=== PATIENT | female | born 1995 | race Caucasian/White ===

== ENCOUNTER 2017-01-13 19:25 | Emergency (ER) | payer SELFPAY ==
--- NOTE | 2017-01-13 21:51 | UC ---
Complaint Female HPI - HPI Summary HPI Summary: Patient presents with suprapubic pain x 1 week. She notes to leaving a tampon in place for 2 days while on her period 2 weeks ago. She is concerned with TSS. She states she just felt "off" since that time. Denies fever. Denies aches, sweats or chills. Denies urinary symptoms. Denies GARSIA. Denies chest pain or pressure. She is tearful on examination d/t unknown reason why she is "feeling off." - History Of Current Complaint Chief Complaint: UCAbdominalPain Stated Complaint: UTERINE/STOMACH PAIN Time Seen by Provider: 01/13/17 19:41 Hx Obtained From: Patient Hx Last Menstrual Period: 01/03/17 ?: No Onset/Duration: Gradual Onset Timing: Constant Severity Initially: Moderate Severity Currently: Moderate Pain Intensity: 3 Pain Scale Used: 0-10 Numeric Character: Cramping Aggravating Factor(s): Movement Associated Signs And Symptoms: Positive: Negative - Risk Factors Ectopic Risk Factor: Negative Ovarian Torsion Risk Factor: Reproductive Age - Allergies/Home Medications Allergies/Adverse Reactions: Allergies Allergy/AdvReac Type Severity Reaction Status Date / Time No Known Allergies Allergy Verified 06/05/12 13:30 PMH/Surg Hx/FS Hx/Imm Hx Previously Healthy: Yes - Surgical History Surgical History: None - Social History Alcohol Use: None Substance Use Type: None Smoking Status (MU): Never Smoked Tobacco Review of Systems Constitutional: Negative Skin: Negative Respiratory: Negative Cardiovascular: Negative Gastrointestinal: Abdominal Pain Genitourinary: Negative Motor: Negative Neurovascular: Negative Musculoskeletal: Negative Neurological: Negative All Other Systems Reviewed And Are Negative: Yes Physical Exam Triage Information Reviewed: Yes Appearance: Well-Appearing, No Pain Distress, Well-Nourished Vital Signs: Initial Vital Signs Temp 98.6 F 01/13/17 19:31 Pulse 59 01/13/17 19:31 Resp 18 01/13/17 19:31 BP 105/69 01/13/17 19:31 Pulse Ox 100 01/13/17 19:31 Vital Signs Reviewed: Yes Eye Exam: Normal Eyes: Positive: Conjunctiva Clear Neck exam: Normal Neck: Positive: Supple, Nontender, No Lymphadenopathy Respiratory Exam: Normal Respiratory: Positive: Chest non-tender, Lungs clear, Normal breath sounds Cardiovascular Exam: Normal Cardiovascular: Positive: RRR Musculoskeletal Exam: Normal Musculoskeletal: Positive: Strength Intact Neurological Exam: Normal Neurological: Positive: Alert Psychological: Positive: Normal Response To Family, Age Appropriate Behavior Skin Exam: Normal Complaint Female Dx - Course Course Of Treatment: UA WNL. Discussed treatment options with patient. Patient prefers to follow up with OBGYN. Educated patient regarding TSS. She states she feels better knowing she does not have TSS based on her symptoms. Cannot r/o ovarian pathology or uterine pain without US and other imaging. Patient agrees but would like to follow up as outpatient. Patient made aware of plan and is OK with discharge. Patient will follow up with PCP and return if symptoms become worse. Return precautions given, medications and side effects reviewed. - Differential Dx/Diagnosis Differential Diagnosis/HQI/PQRI: Appendicitis, Ovarian Cyst, Urinary Tract Infection Provider Diagnoses: Abdominal Pain Discharge - Discharge Plan Condition: Stable Disposition: HOME Patient Education Materials: Acute Abdominal Pain (ED) Referrals: CHIOMA Stewart [Primary Care Provider] - Additional Instructions: Follow up with OBGYN If symptoms become worse, come back to UC or go to the ED [place] for discomfort Moist heat pad to the area
== END 2017-01-13 20:26 | disposition home or self-care (01) ==
LOC: UCEAST 19:25
DX: R10.30 Lower abdominal pain, unspecified (principal)
CPT/HCPCS: 81003; 99201; G0463

== ENCOUNTER 2017-12-23 23:33 | Emergency (ER) | payer OTHER ==
[2017-12-23] MEDS ORDERED: NS 0.9% 1000 ML* 1,000 ML IV ONE (23:34)
[2017-12-23] MEDS ORDERED: LORazepam INJ* 2 MG/ML 1 ML VIAL IV PUSH ONE (23:53)
[2017-12-24 00:12] LABS: ABS Basophils 0 10^3/ul (0-0.2); ABS Eosinophils 0 10^3/ul (0-0.6); ABS Lymphocytes 1.3 10^3/ul (1.0-4.8); ABS Monocytes 0.4 10^3/ul (0-0.8); ABS Neutrophils 6.9 10^3/ul (1.5-7.7); ABS Nucleated RBC 0 10^3/ul; Eosinophil % 0.2 % (0-6); Hematocrit 42 % (35-47); Hemoglobin 14.5 g/dl (12.0-16.0); Lymphocyte % 14.5 % (25-47); Mean Corpuscular HGB Conc 34 g/dl (31-36); Mean Corpuscular Hemoglobin 31 pg (27-31); Mean Corpuscular Volume 89 fL (80-97); Mean Platelet Volume 7.3 um3 (7.4-10.4); Nucleated Red Blood Cells % 0; Platelet Count 334 10^3/ul (150-450); Red Blood Count 4.74 10^6/ul (4.0-5.4); Red Cell Distribution Width 12 % (10.5-15); White Blood Count 8.7 10^3/ul (3.5-10.8)
[2017-12-24 00:26] LABS: EGFR Non-African American 78.8 (>60)
[2017-12-24 00:32] LABS: Urine Appearance Clear; Urine Blood Negative (Negative); Urine Color Straw; Urine Ketones Negative (Negative); Urine Protein Negative (Negative); Urine Specific Gravity 1.003 (1.010-1.030); Urine Urobilinogen Negative (Negative)
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
[2017-12-24 04:27] VITALS: BP 0/0
== END 2017-12-24 04:15 | disposition home or self-care (01) ==
LOC: ED 23:33
DX: F43.22 Adjustment disorder with anxiety (principal)
CPT/HCPCS: 36415; 80048; 80307; 80320; 81003; 84443; 84702; 85025; 93005; 96361; 96374; 99284; G0480; J2060

== ENCOUNTER 2018-10-26 20:56 | Emergency (ER) | payer OTHER ==
--- NOTE | 2018-10-26 23:01 | ED ---
Psychiatric Complaint - HPI Summary HPI Summary: Patient is a 23 y/o female who presents to the ED c/o hallucinations. December 2017 she was admitted to [facility] for psychotic disorder, and schizophrenia has not yet been ruled out. Patient was placed on Abilify and Trazodone, and was doing outpatient counseling for two months. During this period she felt better. Patient is an alcoholic and relapsed between March 2018 and August 2018, and stopped taking her medications. She has been two months sober. Patient was told that drinking alcohol makes her psychotic behavior worse. She found out she was in August, and was diagnosed with a miscarriage 6 days ago. She was 9.5 weeks . Patient has been bleeding for the past two days and also c/o cramps. This recent news has caused her to become manic again. Last night she was having visual and auditory hallucinations, and was suicidal. Patient states the voices in her head were telling her to take all her sleeping pills. She denies any current SI and feels lucid. Patient came to the ED because she didnt feel safe alone, however she now feels safe and is denying a full MHE. She has a plan to go home with her mother and has a counseling appointment in 2 days. Patient is still going to and has a sponsor. She is starting a job in a few weeks. PMHx anxiety, concussion, alcoholism, self-harm. Patient denies any current alcohol or drug use. - History Of Current Complaint Chief Complaint: EDMentalHealth Time Seen by Provider: 10/26/18 22:56 Hx Obtained From: Patient, Family/Zoogler - Parents Hx Last Menstrual Period: 01/03/17 Onset/Duration: Gradual Onset, Worse Since Timing: Constant Character: Depressed Aggravating Factor(s): Recent Stress - miscarraige Alleviating Factor(s): Nothing Related History: Positive For: Prior Psychiatric Issues Has Suicidal: Reports: Thoughts - Allergies/Home Medications Allergies/Adverse Reactions: Allergies Allergy/AdvReac Type Severity Reaction Status Date / Time No Known Allergies Allergy Verified 06/05/12 13:30 Home Medications: Home Medications ARIPiprazole [Abilify] 10 mg PO DAILY 10/26/18 [History Confirmed 10/26/18] hydrOXYzine HCL TAB* [Atarax 25 MG TAB*] 25 mg PO BEDTIME PRN 10/26/18 [History Confirmed 10/26/18] PMH/Surg Hx/FS Hx/Imm Hx Endocrine/Hematology History: Denies: Hx Diabetes Cardiovascular History: Denies: Hx Hypertension Neurological History: Reports: Other Neuro Impairments/Disorders - concussion Psychiatric History: Reports: Hx Anxiety, Hx Substance Abuse - EtOH, Other Psychiatric Issues/Disorders - Psychotic disorder, self-harm Infectious Disease History: No Infectious Disease History: Denies: Traveled Outside the [place] in Last 30 Days - Family History Known Family History: Positive: Other - Father - alcoholism - Social History Alcohol Use: Daily Alcohol Amount: alcoholic - in remission Hx Substance Use: Yes Substance Use Type: Reports: Marijuana Hx Tobacco Use: No Smoking Status (MU): Never Smoked Tobacco Review of Systems Positive: other - vaginal bleeding Positive: Other - cramping Positive: Depressed, Other - auditory/visual hallucinations, SI All Other Systems Reviewed And Are Negative: Yes Physical Exam - Summary Physical Exam Summary: Appearance: well appearing, no pain distress Skin: warm, dry, reflects adequate perfusion Head/face: normal Eyes: EOMI, PUMA ENT: mucous membranes moist Neck: supple, non-tender Respiratory: CTA, breath sounds present Cardiovascular: RRR, pulses symmetrical Abdomen: non-tender, soft Bowel Sounds: present Musculoskeletal: normal, strength/ROM intact Neuro: normal, sensory motor intact, A&Ox3 Triage Information Reviewed: Yes Vital Signs On Initial Exam: Initial Vitals Temp Pulse Resp BP Pulse Ox 99.1 F 90 16 140/71 99 10/26/18 21:05 10/26/18 21:05 10/26/18 21:05 10/26/18 21:05 10/26/18 21:05 Vital Signs Reviewed: Yes Diagnostics - Vital Signs Vital Signs Temp Pulse Resp BP Pulse Ox 10/26/18 21:05 99.1 F 90 16 140/71 99 - Laboratory Lab Statement: Any lab studies that have been ordered have been reviewed, and results considered in the medical decision making process. Course/Dx - Course Course Of Treatment: Nurse's notes reviewed. Patient presents with a history of mental health and with not feeling safe tonight. She is feeling better at this point. She has a plan to follow-up with outpatient counselors in [place] tomorrow that she has long-standing relationship with. She is staying with her mother and has a safety plan. Patient and family refused formal mental health evaluation today. - Differential Dx/Clinical Impression Differential Diagnosis/HQI/PQRI: Positive: Acute Psychosis, Anxiety, Bipolar Disorder, Depression, Suicidal Ideation Provider Diagnosis: Psychotic disorder Discharge - Sign-Out/Discharge Documenting (check all that apply): Patient Departure - Discharge Patient Received Moderate/Deep Sedation with Procedure: No - Discharge Plan Condition: Improved Disposition: HOME Patient Education Materials: Psychotic Disorder (ED) Referrals: Josiah Stanford [Primary Care Provider] - Additional Instructions: Follow up with your counselor and psychiatrist in [place] as scheduled. Return with suicidal thoughts, not feeling safe, worse, new symptoms or other concerns. As for your miscarriage return with heavy bleeding, uncontrolled pain , worse or other concerns. - Billing Disposition and Condition Condition: IMPROVED Disposition: Home - Attestation Statements Document Initiated by Rojelio: Yes Documenting Scribe: Mary Mirza Provider For Whom Nestoribe is Documenting (Include Credential): Damian Maher MD Scribe Attestation: IMary, scribed for Damian Maher MD on 10/27/18 at 0304. Scribe Documentation Reviewed: Yes Provider Attestation: The documentation as recorded by the Mary eric accurately reflects the service I personally performed and the decisions made by me, Damian Maher MD Status of Scribe Document: Viewed
[2018-10-26 23:24] VITALS: BP 134/66
== END 2018-10-26 23:26 | disposition home or self-care (01) ==
LOC: ED 20:56
DX: F29 Unspecified psychosis not due to a substance or known physiological condition (principal); F41.9 Anxiety disorder, unspecified
CPT/HCPCS: 99283

== ENCOUNTER 2018-10-29 09:00 | Emergency (ER) | payer OTHER ==
[2018-10-29] MEDS ORDERED: NS 0.9% 1000 ML** 1,000 ML IV ONE (09:11)
[2018-10-29] MEDS ORDERED: Ondansetron INJ* 2 MG/ML VIAL IV ONE (09:11)
--- OUTSIDE RECORDS SUMMARY | 2018-10-29 09:14 | XMS REPORT | Continuity of Care Document ---
:1995 External Reference #:[id number] Author Name Sara Tillman Care Team Providers Name Role Phone Josiah Mota PA Primary Care Physician Unavailable Payers Date Identification Numbers Payment Provider Subscriber Policy Number: [id number] [facility] Derek Cardoso PayID: [id number] [address] [place] [address] Policy Number: [id number] Medicaid TIGIST Cardoso PayID: [id number] [address] [place] [address] Advance Directives Description No Information Available Problems Description No Information Family History Date Family Member(s) Observation Comments Father A&W Mother Anxiety First Brother A&W First Sister A&W Second Sister A&W Paternal Grandfather A&W Paternal Grandmother A&W Maternal Grandfather due to Unknown Causes () Maternal Grandmother due to Unknown Causes () Social History Type Date Description Comments Sex Unknown Education Highest Level Completed Is High School Diploma Marital Status Single Lives With Mother Lives With Sister Diet Healthy, Well Balanced Pets None Work Status Unemployed Cigarette Use Former Cigarette Smoker Quit with , was 1/2 PPD for 1.5 years prior to quitting ETOH Use Does Not Drink Alcohol In recovery Recreational Drug Use Denies Drug Use Tobacco Use Start: Unknown End: Patient is a former Unknown smoker Smoking Status Reviewed: 10/27/18 Patient is a former smoker Seat Belt/Car Seat Always uses seat belt Currently Active Patient is currently sexually active STD's No STD History Allergies, Adverse Reactions, Alerts Description No Known Drug Allergies Medications Medication Date Status Form Strength Qnty SIG Indications Ordering Provider [facility] Active Tablets 28-0.8mg Unknown Immunizations Description No Information Available Vital Signs Date Vital Result Comment 10/27/2018 1:01pm BP Systolic 122 mmHg BP Diastolic 70 mmHg Height 63 inches 5'3" Weight 160.00 lb BMI (Body Mass Index) 28.3 kg/m2 Last Menstrual Period 4484053 1 Parity 0 09/20/2018 2:32pm BP Systolic 114 mmHg BP Diastolic 66 mmHg Height 63 inches 5'3" Weight 164.00 lb BMI (Body Mass Index) 29.0 kg/m2 Last Menstrual Period 9176308 1 Parity 0 Results Test Date Facility Test Result H/L Range Note Laboratory test 10/20/2018 [facility] HCG 7637.00 mIU/ mL [address] [place] [address] [phone] Type And Screen 10/20/2018 [facility] [place] [address] Type [phone] Antibody Screen NEGATIVE GC/Chlamydia Dna 09/20/2018 [facility] Chlamydia [place] [address] trachomatis Rna [phone] Neisseria gonorrhoeae (GC) Rna Negative Negative Urine Culture And 09/10/2018 [facility] Urine Culture SEE RESULT 2 [place] [address] BELOW [phone] 1 <5.0 Negative 5.0 - 25.0 Indeterminate (Repeat testing recommended after 72 hours) >25.0 Positive Perimenopausal women can display HCG levels of up to 20 mIU/mL 2 SEE RESULT BELOW Name: DEREK LEE : [address]: Maia Mckenzie CNM Acct: [id number] Unit: [id number] AGE: 23 Location: [facility] Re09/10/18 SEX: F Status: REG REF SPEC: [id number] FROYLAN: 09/10/18-[address]: Maia Mckenzie CNM REQ: [id number] RECD: 09/10/18 STATUS: COMP _ SOURCE: URINE [facility]: ORDERED: Urine Culture COMMENTS: [id number] Urine Source: Random Procedure Result Reported Site Urine Culture Final 09/11/18- 1318 ML No Growth (<1,000 CFU/mL) * ML - Main Lab . END OF REPORT DEPARTMENT OF PATHOLOGY, [address] [place] [address] Josiah Franklin M.D. Director [facility] # [id number] Procedures Date Code Description Status 10/20/2018 09313 OB Ultrasound First Trimester Completed 09/20/2018 04373 OB Ultrasound First Trimester Completed 09/10/2018 79307 OB Ultrasound First Trimester Completed Encounters Description No Information Available Plan of Treatment No Information Available
--- OUTSIDE RECORDS SUMMARY | 2018-10-29 09:14 | XMS REPORT | Continuity of Care Document ---
:1995 External Reference #:[id number] Author Name Herminia Arce MD Address [address] [place] [address] Care Team Providers Name Role Phone Josiah Mota PA Primary Care Physician Unavailable Payers Date Identification Numbers Payment Provider Subscriber Policy Number: [id number] [facility] Derek Cardoso PayID: [id number] [address] [place] [address] Policy Number: [id number] Medicaid TIGIST Cardoso PayID: [id number] [address] [place] [address] Advance Directives Description No Information Available Problems [...] Ordering Provider [facility] Active Tablets 28-0.8mg Unknown Medications Administered in Office Medication Date Status Form Strength Qnty SIG Indications Ordering Provider PT SCRN Tbco Administered Injection Yazmin, Id as Non User 019 MD Herminia Immunizations Description No Information Available Vital Signs Date Vital Result Comment 10/27/2018 1:01pm BP Systolic 122 mmHg BP Diastolic 70 mmHg Height 63 inches 5'3" Weight 160.00 lb BMI (Body Mass Index) 28.3 kg/m2 Last Menstrual Period [id number] 1 Parity 0 09/20/2018 2:32pm BP Systolic 114 mmHg BP Diastolic 66 mmHg Height 63 inches 5'3" Weight 164.00 lb BMI (Body Mass Index) 29.0 kg/m2 Last Menstrual Period 8651944 1 Parity 0 Results Test Date Facility Test Result H/L Range Note Laboratory test 10/20/2018 [facility] HCG 7637.00 mIU/ mL 1 [place] [address] [phone] Type And Screen 10/20/2018 [facility] [place] [address] Type [phone] Antibody Screen NEGATIVE GC/Chlamydia Dna 09/20/2018 [facility] Chlamydia [place] [address] trachomatis Rna [phone] Neisseria gonorrhoeae (GC) Rna Negative Negative Urine Culture And 09/10/2018 [facility] Urine Culture SEE RESULT 2 [place] [address] BELOW [phone] 1 <5.0 Negative 5.0 - 25.0 Indeterminate (Repeat testing recommended after 72 hours) >25.0 Positive Perimenopausal women can display HCG levels of up to 20 mIU/mL 2 SEE RESULT BELOW Name: DEREK LEE : [address]: Maia Mckenzie CNM Acct: [id number] Unit: [id number] AGE: 23 Location: [facility] Re09/10/18 SEX: F Status: REG REF SPEC: [id number] FROYLAN: 09/10/18-[address]: Maia Mckenzie, [facility] REQ: [id number] RECD: 09/10/18 STATUS: COMP _ SOURCE: URINE SPDESC: ORDERED: Urine Culture COMMENTS: [id number] Urine Source: Random Procedure Result Reported Site Urine Culture Final 09/11/18- 1318 ML No Growth (<1,000 CFU/mL) * ML - Main Lab . END OF REPORT DEPARTMENT OF PATHOLOGY, [address] [place] [address] Josiah Franklin M.D. 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 O R010/27/2018 - Herminia Arce MDO02.1 Missed abortionComments:Reviewed options. She prefers to schedule a D&C (dilation and curettage) now. This is a procedure where we surgically remove the contents of the uterus. You typically are in the hospital for lessthan 1 day for the procedure. You may have residual cramping or spotting for a few days. Risks of the surgery include bleeding, infection, and very rarely, perforation of the uterus or formation of scar tissue in the uterus.Possible IUD insertion after pt d/w Dr. Monique.F28 Other psychotic disorder not due to a substance or known physiological conditionComments: Assured that pt is safe, is not currently suicidal and has good family support with a plan for if her mood changes. Consider IUD insertion at time of D&C for trainman contraception in case her mood worsens and f/u is an issue. Reviewed risks associated with IUDs including perforation, , abnormal bleeding, pain with insertion and expulsion.
--- OUTSIDE RECORDS SUMMARY | 2018-10-29 09:14 | XMS REPORT | Continuity of Care Document ---
:1995 External Reference #:[id number] Author Name Sara Tillman Care Team Providers Name Role Phone Josiah Mota PA Primary Care Physician Unavailable Payers Date Identification Numbers Payment Provider Subscriber Policy Number: [id number] [facility] Derek Cardoso PayID: [id number] [address] [place] [address] Policy Number: [id number] Medicaid TIGIST Cardoso PayID: [id number] [address] [place] [address] Advance Directives Description No Information Available Problems [...] Mass Index) 28.3 kg/m2 Last Menstrual Period [id number] 1 Parity 0 09/20/2018 2:32pm BP Systolic 114 mmHg BP Diastolic 66 mmHg Height 63 inches 5'3" Weight 164.00 lb BMI (Body Mass Index) 29.0 kg/m2 Last Menstrual Period 8313351 1 Parity 0 Results Test Date Facility Test Result H/L Range Note Laboratory test 10/20/2018 [facility] HCG 7637.00 mIU/ mL 1 [place] [address] [phone] Type And Screen 10/20/2018 [facility] Patient [place] [address] Type [phone] Antibody Screen NEGATIVE GC/Chlamydia Dna 09/20/2018 [facility] Chlamydia Negative [place] [address] trachomatis Rna [phone] Neisseria gonorrhoeae (GC) Rna Negative Negative Urine Culture And 09/10/2018 [facility] Urine Culture SEE RESULT 2 [place] [address] BELOW [phone] 1 <5.0 Negative 5.0 - 25.0 Indeterminate (Repeat testing recommended after 72 hours) >25.0 Positive Perimenopausal women can display HCG levels of up to 20 mIU/mL 2 SEE RESULT BELOW Name: DEREK LEE : [address]: Maia Mckenzie CNM Acct: [id number] Unit: [id number] AGE: 23 Location: [facility] Re09/10/18 SEX: F Status: REG REF SPEC: [id number] FROYLAN: 09/10/18-[address]: Maia Mckenzie CNM REQ: [id number] RECD: 09/10/18 STATUS: COMP _ SOURCE: URINE [facility]: ORDERED: Urine Culture COMMENTS: [id number] Urine Source: Random Procedure Result Reported Site Urine Culture Final 09/11/18- 1318 ML No Growth (<1,000 CFU/mL) * ML - Main Lab . END OF REPORT DEPARTMENT OF PATHOLOGY, [address] [place] [address] Josiah Franklin M.D. Director [facility] # [id number] Procedures Date Code Description Status 10/20/2018 74868 OB Ultrasound First Trimester Completed 09/20/2018 22171 OB Ultrasound First Trimester Completed 09/10/2018 97097 OB Ultrasound First Trimester Completed Encounters Description No Information Available Plan of Treatment No Information Available
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
[2018-10-29] MEDS ORDERED: Midazolam* 1 MG/ML 5 ML VIAL (5 MG) ONE (09:47)
[2018-10-29] MEDS ORDERED: fentaNYL* 50 MCG/ML 2 ML VIAL (100 MCG VIAL) ONE (09:47)
[2018-10-29] MEDS ORDERED: Propofol* 10 MG/ML 20 ML BTL ONE (10:12)
[2018-10-29] MEDS ORDERED: Ondansetron INJ* 2 MG/ML VIAL ONE (10:12)
[2018-10-29] MEDS ORDERED: Lidocaine 2% PF * 5 ML VIAL ONE (10:12)
[2018-10-29] MEDS ORDERED: Dexamethasone IV* 4 MG/ML 1 ML (4 MG) IV SLOW PU ONE (10:29)
[2018-10-29] MEDS ORDERED: Acetaminophen TAB* 325 MG PO PRN (10:29)
[2018-10-29] MEDS ORDERED: Naloxone* 0.4 MG/ML 1 ML VIAL IV PRN (10:29)
[2018-10-29] MEDS ORDERED: fentaNYL* 50 MCG/ML 2 ML VIAL (100 MCG VIAL) IV PRN (10:29)
[2018-10-29] MEDS ORDERED: Ibuprofen TAB* 600 MG PO PRN (10:29)
[2018-10-29] MEDS ORDERED: oxyCODONE/Acetamin 5/325 MG* TAB PO PRN (10:29)
[2018-10-29] MEDS ORDERED: Famotidine TAB* 20 MG PO ONE (10:29)
[2018-10-29] MEDS ORDERED: DiMENhydriNATE IV* 50 MG/ML VIAL IV PUSH PRN (10:29)
[2018-10-29] MEDS ORDERED: Buffered Lidocaine 1% SYRIN* 1 ML/SYRINGE INTRADERM ONE (10:29)
[2018-10-29] MEDS ORDERED: Lactated Ringers 1000 ML Bag* 1,000 ML IV SCH (11:00)
[2018-10-29 11:36] VITALS: BP 135/87
--- NOTE | 2018-10-29 11:48 | OP ---
AMENDED REPORT TO CORRECT ACCOUNT DATE OF OPERATION: 10/29/18 DATE OF : [birth year] SURGEON: Dr. Radha Monique. MID LEVEL CLINICIAN: None. PRE-OP DIAGNOSIS: Incomplete . POST-OP DIAGNOSIS: Incomplete . OPERATIVE PROCEDURE: Dilation, evacuation, and curettage. IV FLUIDS: 1000 cc of crystalloid. URINE OUTPUT: 50 cc of concentrated yellow urine. ESTIMATED BLOOD LOSS: Less than 100 cc. FINDINGS: Revealed intrauterine contents with products of conception. SPECIMEN: Intrauterine contents. COMPLICATIONS: None apparent. DISPOSITION: Stable to recovery room. DESCRIPTION OF PROCEDURE: The patient was placed in dorsal lithotomy position and [facility]. After sterile prep and drape the patient was identified with the universal protocol. After completion of the universal protocol bladder was drained with self cath for 50 cc. Self cath was removed. Sterile speculum was inserted. Cervix was visualized. A paracervical block was created using 10 cc of 1% lidocaine. The cervix was found to be completed dilated. A 10 mm curved suction curette was placed and evacuation was then carried out of the intrauterine contents. Sharp curettage was then performed confirming removal of all intrauterine contents. Single-tooth tenaculum was removed. Hemostasis was assured. Speculum was removed. Cytotec 800 mcg was placed intravaginally to help maintain tone of the uterus. The patient was returned to dorsal lithotomy position and taken to recovery room in stable condition. All sponge, instrument, and blade counts were correct throughout the case. The patient tolerated the procedure well and went to recovery room in stable condition. [id number]/[facility] #: [id number] [facility]
== END 2018-10-29 09:17 | disposition short-term general hospital (02) ==
LOC: ED 09:00
DX: O36.4XX0 Maternal care for intrauterine death, not applicable or unspecified (principal); O99.330 Smoking (tobacco) complicating pregnancy, unspecified trimester; F17.210 Nicotine dependence, cigarettes, uncomplicated
CPT/HCPCS: 58301; 88305; 99281; A9270-GY; J1100; J2250; J2405; J2704; J3010

== ENCOUNTER 2019-12-12 13:43 | Inpatient (IN) ==
[2019-12-12] MEDS ORDERED: Lactated Ringers 1000 ml BAG 1,000 ML IV ONE (15:30)
[2019-12-12 16:02] LABS: Urine Benzodiazepine Screen None Detected (None Detect); Urine Opiates Screen None Detected (None Detect)
[2019-12-12] MEDS ORDERED: Dinoprostone 10 MG VAG.SUPP VAGINAL ONE (20:24)
[2019-12-13] MEDS ORDERED: Promethazine INJ(RESTRICTED) 25 MG/ML 1 ml VIAL IM PRN (01:18)
[2019-12-13] MEDS ORDERED: Morphine 10 MG/ML VIAL (1 ml) IM ONE (01:19)
[2019-12-13] MEDS ORDERED: Promethazine INJ(RESTRICTED) 25 MG/ML 1 ml VIAL ONE (01:31)
[2019-12-13] MEDS ORDERED: Morphine 10 MG/ML VIAL (1 ml) ONE (01:31)
[2019-12-13] MEDS ORDERED: Oxytocin in LR 20 UNITS/1,000 ML BAG IVPB SCH (21:00)
[2019-12-13 21:20] LABS: ABS Monocytes 0.8 10^3/ul (0-0.8); Eosinophil % 0.3 %; Hematocrit 36 % (35-47); Hemoglobin 12.5 g/dL (12.0-16.0); Lymphocyte % 15.2 %; Mean Corpuscular HGB Conc 34 g/dL (31-36); Mean Corpuscular Hemoglobin 30 pg (27-31); Mean Corpuscular Volume 88 fL (80-97); Mean Platelet Volume 8.4 fL (7.4-10.4); Platelet Count 258 10^3/uL (150-450); Red Blood Count 4.11 10^6 /uL (3.70-4.87); Red Cell Distribution Width 13 % (10-15); White Blood Count 13.3 10^3/uL (3.5-10.8)
[2019-12-13] MEDS: Lactated Ringers 1000 ml BAG 1,000 ML IV SCH (21:41)
[2019-12-13] MEDS ORDERED: OBEPIDURAL 250 ML EPIDURAL ONE (23:45)
[2019-12-14] MEDS ORDERED: Sodium Citrate/Citric Acid LIQ 15 ML UDC PO PRN (00:38)
[2019-12-14] MEDS ORDERED: Lactated Ringers 1000 ml BAG 1,000 ML IV ONE (00:38)
[2019-12-14] MEDS ORDERED: Phenylephrine 40 mcg/mL 10mL (400mcg) SYRINGE IV PUSH PRN ×2 (00:38)
[2019-12-14] MEDS ORDERED: Lactated Ringers 1000 ml BAG 500 ML IV PRN ×2 (00:38)
[2019-12-14] MEDS ORDERED: OBEPIDURAL 250 ML EPIDURAL SCH (01:00)
[2019-12-14] MEDS ORDERED: Lactated Ringers 1000 ml BAG 1,000 ML IV SCH ×2 (01:00→13:00)
[2019-12-14] MEDS: Lactated Ringers 1000 ml BAG 1,000 ML IV SCH ×2 (04:41→10:28)
[2019-12-14] MEDS ORDERED: Bupivacaine 0.25% SDV PF 10 ML VIAL INJ ONE (04:48)
[2019-12-14] MEDS ORDERED: ROPIVACAINE 5 MG/ML 30 ML BTL (0.5%) ONE (06:59)
[2019-12-14] MEDS ORDERED: Witch Hazel PAD JAR TOPICAL PRN (12:49)
[2019-12-14] MEDS ORDERED: Dibucaine 1% OINT 28.35 GM TUBE PR PRN (12:49)
[2019-12-14] MEDS ORDERED: Lidocaine 1% VIAL 10 MG/ML VIAL ONE (12:50)
[2019-12-14] MEDS ORDERED: Dibucaine 1% OINT 28.35 GM TUBE ONE (12:51)
[2019-12-14] MEDS ORDERED: Witch Hazel PAD JAR ONE (12:51)
[2019-12-14] MEDS ORDERED: Oxytocin in LR 20 UNITS/1,000 ML BAG IVPB SCH (13:00)
[2019-12-15 06:08] LABS: ABS Eosinophils 0.1 10^3/ul (0-0.6); ABS Lymphocytes 3.2 10^3/ul (1.0-4.8); ABS Monocytes 0.9 10^3/ul (0-0.8); Eosinophil % 0.8 %; Hematocrit 31 % (35-47); Hemoglobin 10.7 g/dL (12.0-16.0); Mean Corpuscular HGB Conc 34 g/dL (31-36); Mean Corpuscular Hemoglobin 31 pg (27-31); Mean Corpuscular Volume 90 fL (80-97); Mean Platelet Volume 8.4 fL (7.4-10.4); Platelet Count 234 10^3/uL (150-450); Red Blood Count 3.47 10^6 /uL (3.70-4.87); Red Cell Distribution Width 14 % (10-15); White Blood Count 16.7 10^3/uL (3.5-10.8)
[2019-12-15 08:10] VITALS: BP 114/59
== END 2019-12-15 18:35 | disposition home or self-care (01) | DRG 560 ==
LOC: MCHOBOUT 13:43 → MCHOB 15:31
PROVIDERS: ADMIT Advanced Practice Midwife; ATTEND Advanced Practice Midwife